=== PATIENT | male | born 1975 ===

== ENCOUNTER 2021-05-11 15:28 | Emergency (ER) | payer OTHER ==
[2021-05-11 15:46] VITALS: BP 147/98
--- NOTE | 2021-05-11 16:40 | Emergency Department Report ---
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 He states he received his second vaccination for COVID-19 on 05/08/2021. He states the next day he had a fever but that completely resolved. He states yesterday he noticed the swelling and redness underneath the arm but not to the injection site. He denies any nipple drainage, nipple bleeding, fever, chills, vomiting, skin drainage. no pmhx. no allergies to meds. - Related Data Previous Rx's Medication Instructions Recorded Last Taken Type Ibuprofen [Motrin 600 MG tab] 600 mg PO Q8H PRN #14 tablet 05/11/21 Unknown Rx Sulfamethoxazole/Trimethoprim 1 each PO BID 7 Days #14 tablet 05/11/21 Unknown Rx [Bactrim DS TAB] Allergies Allergy/AdvReac Type Severity Reaction Status Date / Time No Known Allergies Allergy Unverified 05/11/21 16:17 Abscess Boil HPI - HPI Chief Complaint: Extremity Injury, Upper Stated Complaint: ILLNESS Time Seen by Provider: 05/11/21 16:19 Home Medications: Previous Rx's Medication Instructions Recorded Last Taken Type Ibuprofen [Motrin 600 MG tab] 600 mg PO Q8H PRN #14 tablet 05/11/21 Unknown Rx Sulfamethoxazole/Trimethoprim 1 each PO BID 7 Days #14 tablet 05/11/21 Unknown Rx [Bactrim DS TAB] Allergies/Adverse Reactions: Allergies Allergy/AdvReac Type Severity Reaction Status Date / Time No Known Allergies Allergy Unverified 05/11/21 16:17 ED Review of Systems ROS: Stated complaint: ILLNESS Other details as noted in HPI Comment: All other systems reviewed and negative ED Past Medical Hx - Past Medical History Previous Medical History?: No - Surgical History Past Surgical History?: No - Social History Smoking Status: Current Some Day Smoker Substance Use Type: None - Medications Home Medications: Home Medications Medication Instructions Recorded Confirmed Last Taken Type Ibuprofen [Motrin 600 MG tab] 600 mg PO Q8H PRN #14 tablet 05/11/21 Unknown Rx Sulfamethoxazole/Trimethoprim 1 each PO BID 7 Days #14 tablet 05/11/21 Unknown Rx [Bactrim DS TAB] ED Physical Exam - General Limitations: No Limitations General appearance: alert, in no apparent distress - Head Head exam: Present: atraumatic, normocephalic - Eye Eye exam: Present: normal appearance - ENT ENT exam: Present: mucous membranes moist - Neurological Exam Neurological exam: Present: alert, oriented X3 - Psychiatric Psychiatric exam: Present: normal affect, normal mood - Skin Skin exam: Present: warm, dry, other (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, there is a 3 cm area of mild edema, erythema, and increased warmth present to the left lateral chest wall, no fluctuance, no drainage, no nodules or masses, no nipple discharge, no peau d'orange) ED Course Vital Signs 05/11/21 05/11/21 05/11/21 15:43 16:11 16:12 Temperature 98.1 F 98.1 F Pulse Rate 89 Respiratory 18 Rate Blood Pressure 147/98 [Left] O2 Sat by Pulse 97 99 Oximetry ED Medical Decision Making - Medical Decision Making Guinean interpretation by Harry correctional security officer with patient's permission Patient is a 46-year-old male who presents emergency room with complaints of swelling and redness present underneath his left arm that began yesterday. He states he received his second vaccination for COVID-19 on 05/08/2021. He states the next day he had a fever but that completely resolved. He states yesterday he noticed the swelling and redness underneath the arm but not to the injection site. He denies any nipple drainage, nipple bleeding, fever, chills, vomiting, skin drainage. no pmhx. no allergies to meds. Vitals are stable. 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 Examination appears consistent with cellulitis. No signs of abscess or mass. Patient will be given prescription for medication. Discussed the importance of having the area reexamined in the next 3 days. Discussed return precautions with patient. Advised patient Please take medication as prescribed. Please follow-up with your primary care doctor and have area reexamined in the next 3 days. Return to emergency room immediately for any new or worsening symptoms including but not limited to worsening swelling, worsening redness, fever, nipple discharge, vomiting, etc. Critical care attestation.: If time is entered above; I have spent that time in minutes in the direct care of this critically ill patient, excluding procedure time. ED Disposition Clinical Impression: Cellulitis of chest wall Disposition: HOME / SELF CARE / HOMELESS Is pt being admited?: No Does the pt Need Aspirin: No Condition: Stable Instructions: Cellulitis, Adult Additional Instructions: Please take medication as prescribed. Please follow-up with your primary care doctor and have area reexamined in the next 3 days. Return to emergency room immediately for any new or worsening symptoms including but not limited to worsening swelling, worsening redness, fever, nipple discharge, vomiting, etc. Thebes la medicacin segn lo prescrito. Bindu un seguimiento con perez mdico de atencin primaria y vuelva a examinar el socorro en los prximos 3 baker. Regrese a la melina de emergencias de inmediato por cualquier sntoma nuevo o que empeore, incluidos, entre otros, agravamiento de la hinchazn, empeoramiento del enrojecimiento, fiebre, secrecin del pezn, vmitos, etc. Prescriptions: Sulfamethoxazole/Trimethoprim [Bactrim DS TAB] 1 each PO BID 7 Days #14 tablet Ibuprofen [Motrin 600 MG tab] 600 mg PO Q8H PRN #14 tablet PRN Reason: Pain Referrals: HA SALCIDO MD [Staff Physician] - 2-3 Days Time of Disposition: 16:39 Print Language: POLISH
== END 2021-05-11 17:28 | disposition home or self-care (01) ==
LOC: ED 15:28
DX: L03.313 Cellulitis of chest wall (principal); F17.200 Nicotine dependence, unspecified, uncomplicated
CPT/HCPCS: 99282